=== PATIENT | male | born 1950 | race Hispanic/Latino ===

== ENCOUNTER 2021-06-20 19:54 | Emergency (ER) | payer MEDICARE, MEDICAID ==
[~2021-06-20] VITALS: Ht 167.6 cm; Wt 68.9 kg
[2021-06-20] MEDS ORDERED: NEOMY SULF/BACITRA/POLYMYXIN B 1 EACH PACKET TP SCH (20:30)
[2021-06-20] MEDS ORDERED: TETANUS/DIPHTHERIA TOXOID [ADULT] 0.5 ML VIAL IM ONE (20:30)
[2021-06-20] MEDS ORDERED: CEPHALEXIN 500 MG CAPSULE PO ONE (20:30)
[2021-06-20] MEDS ORDERED: LIDOCAINE HCL-MPF 2% 5ML VIAL IM SCH (20:30)
[2021-06-20 21:10] VITALS: BP 139/96
[2021-06-20] MEDS ORDERED: CEPH500B PO (21:11)
== END 2021-06-20 21:53 | disposition home or self-care (01) ==
LOC: EDH 19:54
DX: S61.215A Laceration without foreign body of left ring finger without damage to nail, initial encounter (principal); W23.0XXA Caught, crushed, jammed, or pinched between moving objects, initial encounter; Y93.89 Activity, other specified; Y92.89 Other specified places as the place of occurrence of the external cause; Y99.8 Other external cause status
CPT/HCPCS: 12002; 73140; 90471; 90714; 99283; J3490

== ENCOUNTER 2021-07-08 06:07 | Emergency (ER) | payer OTHER, MEDICARE ==
[~2021-07-08] VITALS: Ht 167.6 cm; Wt 68.0 kg
[~2021-07-08 06:07] MED LIST: CEPH500B PO
[2021-07-08 07:15] VITALS: BP 128/74
== END 2021-07-08 07:20 | disposition home or self-care (01) ==
LOC: EDH 06:07
DX: S61.215D Laceration without foreign body of left ring finger without damage to nail, subsequent encounter (principal); Z79.899 Other long term (current) drug therapy; X58.XXXD Exposure to other specified factors, subsequent encounter
CPT/HCPCS: 99281